=== PATIENT | female | born 1930 | race Caucasian/White ===

== ENCOUNTER 2018-12-23 12:09 | Inpatient (IN) ==
[2018-12-23] MEDS ORDERED: ZOFRAN ODT PO ONE (13:18)
[2018-12-23 14:06] LABS: HEMATOCRIT 35.2 % (37.0-47.0); HEMOGLOBIN 11.6 g/dL (12.0-16.0); IMM GRAN# 0.04 X1000 (0.0-0.04); IMM GRAN% 0.4 % (0.0-0.5); LYMPH# 0.51 X1000 (1.2-3.4); LYMPH% 4.9 % (20.5-51.1); MCH 30.4 PG (27-31); MCV 92.4 FL (81-99); MONO# 0.57 X1000 (0.11-0.59); MONO% 5.4 % (1.7-9.3); MPV 11.2 FL (7.4-10.4); NEUT# 9.35 X1000 (1.4-6.5); NEUT% 89.3 % (42.2-75.2); PLT 95 X1000 (130-400); RBC 3.81 XMIL (4.2-5.4); RDW 15.5 % (11.5-14.5); WBC 10.47 X1000 (4.8-10.8)
[2018-12-23 14:16] LABS: CALCIUM 8.8 mg/dL (8.8-10.2); CREATININE 2.7 mg/dL (0.5-0.9); POTASSIUM 3.8 mmol/L (3.5-5.1)
[2018-12-23 14:36] LABS: URINE SOURCE CLEAN CATCH
[2018-12-23] MEDS ORDERED: NS 1,000 ML IV ONE (14:42)
[2018-12-23] MEDS ORDERED: BENTYL PO ONE (14:42)
[2018-12-23 14:44] LABS: BILIRUBIN URINE NEGATIVE (NEGATIVE); BLOOD URINE SMALL (NEGATIVE); COLOR YELLOW; GLUCOSE URINE NEGATIVE (NEGATIVE); KETONE URINE NEGATIVE (NEGATIVE); LEUKOCYTES URINE TRACE (NEGATIVE); NITRITE URINE NEGATIVE (NEGATIVE); PROTEIN URINE 100 mg/dL (NEGATIVE); SP GRAVITY URINE 1.004; TURBIDITY URINE HAZY (CLEAR); UR EPITHELIAL CELLS <10 /HPF (<10); URINE BACTERIA 4+ /HPF; UROBILINOGEN URINE NORMAL (NORMAL)
[2018-12-23] MEDS ORDERED: FLAGYL PO ONE (16:20)
--- NOTE | 2018-12-23 16:45 | Diag Imaging Result Doc PS360 ---
CHEST-PORTABLE - 12/23/2018 INDICATION: SOB,EDEMA COMPARISON: 11/06/2018 FINDINGS: The lungs are normally expanded and clear. Heart size and mediastinal contours are normal. No pneumothorax or pleural effusion. IMPRESSION: Negative exam. Electronically signed by Moody Zapata 12/23/2018 4:42 PM
--- NOTE | 2018-12-23 17:46 | PROVIDER DOCUMENTATION ---
This chart was entered by Marcelina Victor Scribe, acting as scribe for Maksim Junior MD. HPI-Abdominal Pain/GI Problem - General Chief Complaint: Diarrhea Stated Complaint: WEAKNESS Time Seen by Provider: 12/23/18 13:04 Source: patient Allergies/Adverse Reactions: Patient Allergies Allergy/AdvReac Type Severity Reaction Status Date / Time No Known Allergies Allergy Verified 12/24/18 03:43 Home Medications: Home Medication List Medication Instructions Recorded Confirmed Last Taken Type Amlodipine Besylate [Norvasc] 1 tab PO DAILY 11/05/18 12/24/18 12/23/18 History Atorvastatin Calcium [Lipitor] 1 tab PO QPM 11/05/18 12/24/18 12/22/18 History Brimonidine/Timolol Ophth Soln 1 drop BOTH EYES BID 11/05/18 12/24/18 12/23/18 History [Combigan Ophth Soln] Carboxymethylcellulose Sodium 1 drop BOTH EYES QHS 11/05/18 12/24/18 12/23/18 History [Refresh Liquigel] Cyclobenzaprine HCl [Flexeril] 2 tab PO Q8HR PRN 11/05/18 12/24/18 Unknown History Folic Acid 1 tab PO DAILY 11/05/18 12/24/18 12/23/18 History Levothyroxine Sodium [Synthroid] 1 tab PO 0600 11/05/18 12/24/18 12/23/18 06:00 History Loratadine [Claritin] 1 tab PO DAILY 11/05/18 11/05/18 11/05/18 08:00 History Ondansetron HCl [Zofran] 1 tab PO Q6H PRN PRN 11/05/18 11/05/18 Unknown History Pantoprazole [Protonix] 1 tab PO QAM 11/05/18 12/24/18 12/23/18 History Polyethylene Glycol 3350 [Miralax] 17 gm PO DAILY PRN 11/05/18 12/24/18 08:00 History Acetaminophen [Tylenol] 2 tab PO Q4HR PRN 12/24/18 12/24/18 Unknown History Cholecalciferol (Vit D3) [Vitamin 1 tab PO QAM 12/24/18 12/24/18 12/23/18 History D3] Escitalopram Oxalate [Lexapro] 1 tab PO QAM 12/24/18 12/24/18 12/23/18 History Hydrochlorothiazide 1 tab PO QAM 12/24/18 12/24/18 12/23/18 History Levofloxacin [Levaquin] 1 tab PO QAM 12/24/18 12/24/18 12/23/18 History Melatonin/Pyridoxine HCl (B6) 3 tab PO QHS 12/24/18 12/24/18 12/22/18 History [Melatonin 3 mg Tablet] Mirtazapine [Remeron] 7.5 mg PO QHS 12/24/18 12/24/18 12/22/18 History Multivitamin [Multiple Vitamins] 1 tab PO QAM 12/24/18 12/24/18 12/23/18 History Olanzapine [Zyprexa] 1 tab PO QHS 12/24/18 12/24/18 12/22/18 History Ondansetron HCl [Zofran] 1 tab PO Q6HR PRN 12/24/18 12/24/18 Unknown History Vitamin B Complex 1 cap PO QAM 12/24/18 12/24/18 12/23/18 History Vortioxetine Hydrobromide 1 tab PO QAM 12/24/18 12/24/18 12/23/18 History [Trintellix] - History of Present Illness-ABD Nature of Presenting Problems: Patient is a 88 year old female who presents to the ED via EMS with abdominal pain. Patient states diarrhea, weakness and cough. Patient's daughter states patient was diagnosed with a possible URI and placed on antibiotics. Patient's daughter states patient took 2 doses and started having diarrhea. Patient denies recent fever. Abdominal Pain Onset Location: reports: generalized abdomen Pain Radiation: reports: no radiation Quality of Pain: reports: aching Severity in ED: reports: mild Onset/Duration: reports: 2 days ago Timing: reports: still present Activities at Onset: reports: light activity Modifying Factors: improves with: nothing Associated Symptoms: reports: diarrhea, weakness Bruising or Bleeding Gums?: No Similar Symptoms Previously?: Yes Recently seen or treated by another doctor?: Yes Review of Systems - Adult - REVIEW OF SYSTEMS - ADULT Constitutional: reports: no symptoms reported Eyes: reports: no symptoms reported Ears, Nose, Mouth & Throat: reports: no symptoms reported Cardiovascular: reports: no symptoms reported Respiratory: reports: cough. denies: shortness of breath, wheezing Gastrointestinal: reports: abdominal pain, diarrhea. denies: nausea, vomiting Genitourinary: reports: no symptoms reported Musculoskeletal: reports: muscle weakness. denies: back pain, neck pain Integumentary: reports: no symptoms reported Neurological: reports: no symptoms reported Psychiatric: reports: no symptoms reported Endocrine: reports: no symptoms reported Hematologic/Lymphatic: reports: no symptoms reported Allergic/Immunologic: reports: no symptoms reported All Other Systems: Reviewed and Negative Past History - Adult - PAST MEDICAL HISTORY-ADULT Review of Records: reports: Nursing Assessment Review, Medications Reviewed, Social history reviewed & non-contributory. Major Childhood Illnesses: reports: denies history Cardiovascular: reports: HTN Respiratory: reports: denies history Gastrointestinal: reports: GERD Obstetrical/Gynecological: reports: denies history Genitourinary: reports: dialysis, ESRD, kidney stones Musculoskeletal: reports: denies history Neurological: reports: denies history Psychiatric: reports: anxiety, depression Endocrine/Immune: reports: thyroid disorder Other Conditions: reports: denies history - PRIOR SURGERIES/PROCEDURES Surgical/Procedure History: reports: cholecystectomy, hysterectomy, joint replacement, other - IMMUNIZATION STATUS Childhood Immunizations: See Nurse Assessment Flu Vaccine: See Nurse Assessment - FAMILY HISTORY Family History: reviewed, not pertinent - SOCIAL HISTORY Smoking: cigarettes (former) Substance Use: denies Living Situation: care facility (assisted living) Physical Exam-General - PHYSICAL EXAM-ADULT Initial Vital Signs Reviewed: Yes - CONSTITUTIONAL General Appearance: alert, no apparent distress - HEAD, EARS, NOSE, MOUTH & THROAT HENMT: normal ENT inspection - NECK Neck: normal inspection - RESPIRATORY Respiratory: chest non-tender, lungs clear, normal breath sounds - CARDIOVASCULAR Cardiovascular: normal peripheral pulses, regular rate, rhythm - GASTROINTESTINAL (ABDOMEN) Abdominal Exam: normal bowel sounds, soft, tenderness (generalized) - MUSCULOSKELETAL Extremity: non-tender, normal inspection - SKIN Integumentary: normal color, normal turgor, warm/dry - NEUROLOGIC Neurologic: grossly normal - PSYCHIATRIC Psych/Mental Status: normal mood/affect, oriented x 3 Progress - PLAN OF CARE/RESULTS Progress/Plan/Lab Results: Vital Signs - 8 hr 12/23/18 12:40 Temperature 99.0 F Pulse Rate 87 Respiratory Rate 18 Blood Pressure 130/48 O2 Sat by Pulse Oximetry 96 Laboratory Results - last 24 hr 12/23/18 12/23/18 12/23/18 13:30 13:30 13:30 WBC 10.47 RBC 3.81 L Hgb 11.6 L Hct 35.2 L MCV 92.4 MCH 30.4 MCHC 33.0 RDW Std Deviation 15.5 H Plt Count 95 L MPV 11.2 H Immature Gran % (Auto) 0.4 Neut % (Auto) 89.3 H Lymph % (Auto) 4.9 L [place] % (Auto) 5.4 Eos % (Auto) 0.0 Baso % (Auto) 0.0 Immature Gran # (Auto) 0.04 Neut # (Auto) 9.35 H Lymph # (Auto) 0.51 L [place] # (Auto) 0.57 Eos # (Auto) 0.00 Baso # (Auto) 0.00 Sodium 137 Potassium 3.8 Chloride 101 Carbon Dioxide 21 L Anion Gap 15 BUN 33 H Creatinine 2.7 H Estimated GFR/1.73 m2 17 BUN/Creatinine Ratio 12 Glucose 103 Calculated Osmolality 281 Calcium 8.8 Plasma Lactate 1.1 Orders Category Date Time Status Saline Loc NOW Care 12/23/18 13:16 Active BMP [BASIC METABOLIC PANEL] [CHEM] Stat Lab 12/23/18 13:30 Completed C DIFF TOXIN [STOOL] Stat Lab 12/23/18 13:42 Ordered CBC WITH ELECTRONIC DIFF [HEME] Stat Lab 12/23/18 13:30 Completed INFLUENZA SCREEN A/B Stat Lab 12/23/18 14:15 Ordered LACTATE, PLASMA [CHEM] Stat Lab 12/23/18 13:30 Completed URINALYSIS W/POSS RFLX CULT [URINALYSIS] Stat Lab 12/23/18 13:42 Ordered Ondansetron Odt [Zofran Odt] Med 12/23/18 13:18 Discontinued 4 mg PO NOW ONE Result Diagrams: 12/24/18 04:44 12/24/18 04:44 - XRAY 1 XRAY Study: Chest Impression: See EMR Report ( CHEST-PORTABLE - 12/23/2018 INDICATION: SOB,EDEMA COMPARISON: 11/06/2018 FINDINGS: The lungs are normally expanded and clear. Heart size and mediastinal contours are normal. No pneumothorax or pleural effusion. IMPRESSION: Negative exam. Electronically signed by Moody Zapata 12/23/2018 4:42 PM 01/2 Interpreting Physician: Moody Zapata MD Dictated Date/Time: 12/23/18 164 cc: Maksim Junior MD; Kay De Los Santos MD) - CHANGE OF SHIFT REPORT (ED Provider) Report Given and Care Transferred to:: DR Lisa RAMOS Time of Transfer: 19:09 Items Pending: Physician Consult/Arrival Departure - Departure Date of Disposition Decision: 12/23/17 Time of Disposition Decision: 15:00 DIAGNOSIS: Diarrhea, CHF (congestive heart failure), Dependent edema, Impaired ambulation , Weakness, Shortness of breath Disposition: ADMITTED INPATIENT 09 Certified Medical Emergency: Emergent Condition: Stable - Critical Care Note This patient required my direct & personal management of CC.: No Attestation - Physician/ LARRY Attestation The physician spent face to face time with patient:: Yes Advanced Practice Provider documentation review:: Supervising physician onsite and consulted in the evaluation and care of this patient. The physician did have a face to face encounter with the patient. This chart was documented by the indicated scribe, (Marcelina Victor Scribe) and accurately reflects the services I performed and decisions made by me, Maksim Junior MD, as attested by the provider's signature.
[2018-12-23] MEDS ORDERED: VANCOCIN PO ONE (18:31)
[2018-12-23] MEDS ORDERED: NS 1,000 ML IV SCH (20:34)
[2018-12-23] MEDS ORDERED: TYLENOL PO PRN (20:34)
[2018-12-24] MEDS: FLAGYL 500 MG/NS 500 MG/100 ML IVPB IV SCH ×3 (03:01→18:40)
--- NOTE | 2018-12-24 03:19 | HISTORY AND PHYSICAL ---
CHIEF COMPLAINT: Diarrhea and shortness of breath. HISTORY OF PRESENT ILLNESS: The patient is an 88-year-old white female followed by Dr. Kay De Los Santos. The patient comes in with a 3-day history of upper respiratory symptoms to include severe sore throat, mild cough, lower extremity edema and dyspnea. The patient was seen on 12/21/2018 in [facility] and placed on hydrochlorothiazide 25 mg q.a.m., and also given antibiotic of unknown variety and she was taking it. Her sore throat improved significantly, but she still had some cough and leg swelling. Notably she has been in the hospital up in [place] at a [facility] where she has undergone about 14 ECT treatments since August according to family report as she suffers from severe depression. She had the last ECT treatments around 3 weeks ago with a full change in her antidepressant medications. She had a echocardiogram done in May of 2018 with normal EF and workup per Dr. Gopal Schwartz at that time. She denies any chest pains. Most notably patient has had severe diarrhea with 3 extremely large loose bowel movements yesterday and 1 earlier today, which was initially the reason the patient came into the hospital. MEDICATIONS PRIOR TO ADMISSION: Otherwise include Norvasc 10 mg p.o. daily, which apparently has been newly added to her medication list, Abilify 7.5 mg p.o. q.a.m., Lipitor 40 mg p.o. at bedtime, Combigan ophthalmic solution, Refresh liquid gel eye drops, vitamin D3 1000 units p.o. daily, Flexeril 5 mg p.o. daily p.r.n., folic acid 1 mg p.o. daily, Synthroid 50 mcg p.o. daily, Claritin 10 mg p.o. daily, melatonin 5 mg p.o. at bedtime, Zofran 4 mg p.o. q.6 hours p.r.n. nausea or vomiting, Protonix 40 mg p.o. daily, MiraLAX 17 g in 8 ounces of water daily, Trintellix 10 mg p.o. daily. ALLERGIES: NKDA. PAST MEDICAL HISTORY: 1. Severe depression. 2. Hypertension. 3. Glaucoma. 4. History of left breast cancer. 5. Hyperlipidemia. 6. Hypothyroidism. 7. Osteoarthritis. 8. History of syncope and sick sinus syndrome. 9. Negative cardiac catheterization in 2013. PAST SURGICAL HISTORY: 1. Bilateral mastectomy. 2. Bilateral hip ORIF. 3. Bilateral cataract surgery on numerous occasions. 4. Complete hysterectomy. 5. Cholecystectomy. FAMILY HISTORY: Notable for daughter with breast cancer. Mother with stroke and heart attacks. Father with stroke. SOCIAL HISTORY: The patient lives in the local area. She is , has 3 children. Nonsmoker. Nondrinker. REVIEW OF SYSTEMS: As above. PHYSICAL EXAMINATION: VITAL SIGNS: Temperature 98.4 degrees, pulse 78, respirations 28, blood pressure is 135/85, O2 saturation on room air 93%-95%. GENERAL: Mildly obese white female, alert and talkative. No acute distress. SKIN: No rashes. Dry mucous membranes at the lips and mouth noted. HEENT: VOLODYMYR. EOMI. Sclerae clear. OP minimal redness. No exudate. NECK: No lymphadenopathy, thyromegaly, JVD, or bruits. CARDIOVASCULAR.: RRR without appreciable murmur. LUNGS: Clear to auscultation. BACK: No CVA tenderness. ABDOMEN: Soft. Active bowel sounds. Mild diffuse tenderness. No mass or organomegaly. No rebound or guarding. BREASTS/PELVIC/RECTAL: Deferred. EXTREMITIES: With 2+ lower extremity edema. No calf tenderness or cords. NEUROLOGIC: Cranial nerves II-XII intact. She moves all extremities well. LABORATORY DATA: Shows white count of 10.4, hemoglobin 11.6, hematocrit 35.2, MCV 92, platelets 95,000, which is low for her first occasion that I can see. Sodium 137, potassium 3.8, chloride 101, CO2 of 21, BUN 33, creatinine 2.7 up from 1.9 last visit back in the summer, proBNP 4937, calcium 8.8. Urinalysis was a clean catch specimen and shows less than 10 epithelial cells, 10-20 RBCs, 10-20 WBCs, 4+ bacteria, trace leukocytes, small blood, protein 100, ketones not reported. Chest x-ray no acute disease. ASSESSMENT: 1. Diarrhea rule out Clostridium difficile colitis after recent antibiotic administration. 2. Recent upper respiratory infection. 3. Pyuria noted on a clean-catch specimen with the patient having diarrhea. Rule out urinary tract infection. Rule out contaminant. 4. Dyspnea and lower extremity edema. Rule out congestive heart failure. 5. Acute on chronic renal insufficiency. 6. Thrombocytopenia. 7. History of left breast cancer remote. 8. Glaucoma. 9. Hypothyroidism. 10. Hypertension. 11. Hyperlipidemia. 12. History of vitamin D deficiency. 13. Major depression status post electroconvulsive therapy treatments. 14. Osteoarthritis. 15. History of sick sinus syndrome worsened by beta blockers and calcium channel blockers. PLAN: At this time I am going to leave off the Norvasc as this may be contributing to her lower extremity edema. The patient clinically appears dry and her renal dysfunction I believe has a good component of prerenal azotemia. At this time we will give her low IV hydration. She has received 1 L of normal saline in the ER by the ER physician. He has also given her Bentyl, Flagyl and oral vancomycin. I am going to continue the Flagyl by IV, and leave off the vancomycin and Bentyl especially. We will check stool studies for C. difficile toxin antigen, occult blood, fecal leukocytes and stool culture. Continue most of her home medications. We will need to monitor her blood pressure off the Norvasc closely. Repeat TFTs, CBC, BMP in the morning. Check repeat UA this time with cath specimen with culture as needed. Place her on clear liquid diet. cc: MD Griffin Nur MD
[2018-12-24 05:44] LABS: EOS# 0.01 X1000 (0.0-0.7); EOS% 0.1 % (0.0-10.0); HEMATOCRIT 30.4 % (37.0-47.0); HEMOGLOBIN 10.2 g/dL (12.0-16.0); LYMPH# 0.52 X1000 (1.2-3.4); MCHC 33.6 g/dL (33-37); MCV 92.4 FL (81-99); MONO# 0.62 X1000 (0.11-0.59); MONO% 8.3 % (1.7-9.3); MPV 11.7 FL (7.4-10.4); NEUT# 6.31 X1000 (1.4-6.5); NEUT% 84.6 % (42.2-75.2); PLT 99 X1000 (130-400); RBC 3.29 XMIL (4.2-5.4); RDW 15.2 % (11.5-14.5); WBC 7.46 X1000 (4.8-10.8)
[2018-12-24 05:45] LABS: CALCIUM 7.9 mg/dL (8.8-10.2); CREATININE 2.5 mg/dL (0.5-0.9); POTASSIUM 3.6 mmol/L (3.5-5.1)
[2018-12-24 06:04] LABS: FREE T4 1.8 ng/dL (0.93-1.70); TSH 2.76 uIUmL (0.27-4.20)
[2018-12-24] MEDS: COMBIGAN OPHTH SOLN BOTH EYES SCH ×3 (09:38→20:11)
[2018-12-24] MEDS: ABILIFY PO SCH (09:39)
[2018-12-24] MEDS: LIPITOR PO SCH (09:40)
[2018-12-24] MEDS: FOLIC ACID PO SCH (09:40)
[2018-12-24] MEDS: SYNTHROID PO SCH (09:40)
[2018-12-24] MEDS: SYSTANE EYE DROPS BOTH EYES SCH ×2 (09:42→22:35)
[2018-12-24] MEDS: MELATONIN PO SCH ×3 (09:42→22:35)
[2018-12-24] MEDS: VITAMIN D PO SCH (11:00)
[2018-12-24] MEDS: TRINTELLIX PO SCH (11:01)
[2018-12-24] MEDS: ZOFRAN IV PRN (11:57)
[2018-12-24] MEDS: NS 1,000 ML IV SCH (20:12)
[2018-12-24] MEDS: PROTONIX IV SCH (21:36)
--- NOTE | 2018-12-25 00:26 | PROGRESS NOTE ---
DATE: 12/24/2018 SUBJECTIVE: An 88-year-old white female, admitted to the hospital by Dr. Lazo. History was reviewed. The patient was admitted for diarrhea, dehydration. She was treated with an upper respiratory infection in the [facility]. PAST MEDICAL HISTORY: Reviewed. PAST SURGICAL HISTORY: Reviewed. MEDICINES: Reviewed. ALLERGIES: Not known. REVIEW OF SYSTEMS: No significant diarrhea noted. Some leg cramps. EXAMINATION: Vital Signs: Temperature is 98 degrees, pulse is 79, blood pressure 133/56. HEENT: Within normal limits. Neck: Supple. Chest: Clear. Heart: Sounds are regular. Abdomen: Belly is soft. Genitourinary: In diapers. Extremities: Trace pedal edema noted. LABS: CBC: White cell count 7.4, hematocrit 30, platelets 99,000. SMA is BUN 34, creatinine 2.5. Free T4 is slightly high. Urine culture positive for infection. ASSESSMENT AND PLAN: 1. Recently treated with upper respiratory infection with antibiotics. 2. Diarrhea. Rule out pseudomembranous colitis. Currently, patient is on Flagyl. 3. Urinary tract infection. Follow up on C S. 4. Bilateral mastectomy for breast cancer, stable. 5. Hypothyroidism, on Synthroid. T4 is slightly on the high side. 6. Azotemia. Continue on IV fluids, 80 an hour. 7. Thrombocytopenia, stable. 8. History of severe major depression, status post ECT. Continue on Vortioxetine 10 mg daily. 9. Repeat the labs in the morning. So far, no stool samples were obtained. Continue on clear liquids. LEVEL OF DOCUMENTATION: 35 minutes. cc: Griffin De Los Santos MD
[2018-12-25] MEDS: FLAGYL 500 MG/NS 500 MG/100 ML IVPB IV SCH ×3 (05:27→19:30)
[2018-12-25 07:27] LABS: EOS# 0.05 X1000 (0.0-0.7); EOS% 0.6 % (0.0-10.0); HEMATOCRIT 33.9 % (37.0-47.0); HEMOGLOBIN 11.3 g/dL (12.0-16.0); IMM GRAN# 0.02 X1000 (0.0-0.04); IMM GRAN% 0.2 % (0.0-0.5); LYMPH# 0.72 X1000 (1.2-3.4); LYMPH% 8.8 % (20.5-51.1); MCH 30.3 PG (27-31); MCHC 33.3 g/dL (33-37); MCV 90.9 FL (81-99); MONO# 0.63 X1000 (0.11-0.59); MONO% 7.7 % (1.7-9.3); MPV 10.9 FL (7.4-10.4); NEUT# 6.74 X1000 (1.4-6.5); NEUT% 82.7 % (42.2-75.2); PLT 113 X1000 (130-400); RBC 3.73 XMIL (4.2-5.4); RDW 15.2 % (11.5-14.5); WBC 8.16 X1000 (4.8-10.8)
[2018-12-25 08:05] LABS: CALCIUM 8.5 mg/dL (8.8-10.2); CREATININE 2.1 mg/dL (0.5-0.9); POTASSIUM 3.3 mmol/L (3.5-5.1)
[2018-12-25] MEDS: SYNTHROID PO SCH (08:16)
[2018-12-25] MEDS: TRINTELLIX PO SCH (08:17)
[2018-12-25] MEDS: ABILIFY PO SCH (08:17)
[2018-12-25] MEDS: COMBIGAN OPHTH SOLN BOTH EYES SCH ×2 (08:17→20:37)
[2018-12-25] MEDS: VITAMIN D PO SCH (08:17)
[2018-12-25] MEDS: LOVENOX SUBQ SCH (08:17)
[2018-12-25] MEDS: FOLIC ACID PO SCH (08:17)
[2018-12-25] MEDS: POTASSIUM CHLORIDE 20 MEQ/SWI 20 MEQ/100 ML IVPB IV SCH ×5 (10:23→22:25)
[2018-12-25] MEDS: LEVAQUIN 250 MG/D5W 250 MG/50 ML IVPB IV SCH (10:37)
[2018-12-25] MEDS: NS 1,000 ML IV SCH ×2 (10:38→23:55)
[2018-12-25] MEDS: ZOFRAN IV PRN (16:35)
--- NOTE | 2018-12-25 19:20 | PROGRESS NOTE ---
DATE: 12/25/2018 SUBJECT: The patient is a little better. Still no loose bowel movements. Mild swelling of feet. REVIEW OF SYSTEMS: None reported. EXAMINATION: Temperature is 97 degrees, pulse is 76, blood pressure 149/63.HEENT: Within normal limits. Neck: Supple. Chest: Clear. Heart: Sounds are regular. Belly: Is soft, nontender. In diapers. No peripheral edema significant noted. INVESTIGATIONS: CBC: White cell count 8.1, hematocrit 33, platelets 113,000. SMA 7 sodium 139, potassium 3.3, BUN 36, creatinine 2.1. Urine cultures positive for gram-negative rods. Stool cultures, white cells negative. Occult blood negative. C difficile antigen negative. ASSESSMENT AND PLAN: 1. Urinary tract infection with gram-negative jesus sepsis, continue on IV fluids 80 mL/hour. 2. Hypokalemia replace the potassium. 3. Deep venous thrombosis prophylaxis with Lovenox. 4. Diarrhea, ruled out pseudomembranous colitis, on Flagyl. 5. Hypothyroidism on Synthroid. 6. Major depression, continue present medical therapy. Will follow up on culture report and adjust antibiotics accordingly. Follow up on daily CBC and magnesium. Advanced the diet to soft diet and will follow up. LEVEL OF DOCUMENTATION: 25 minutes. cc: Griffin De Los Santos MD
[2018-12-25] MEDS: SODIUM CHLORIDE 0.9% INJ SCH (20:36)
[2018-12-25] MEDS: SYSTANE EYE DROPS BOTH EYES SCH (20:36)
[2018-12-25] MEDS: PROTONIX IV SCH (20:36)
[2018-12-25] MEDS: LIPITOR PO SCH (20:37)
[2018-12-25] MEDS: MELATONIN PO SCH ×2 (20:37)
[2018-12-26] MEDS: NS 1,000 ML IV SCH ×3 (01:58→20:47)
[2018-12-26] MEDS: SYNTHROID PO SCH (06:08)
[2018-12-26 07:24] LABS: BASO# 0.01 X1000 (0.0-0.2); BASO% 0.1 % (0.0-0.8); EOS# 0.05 X1000 (0.0-0.7); EOS% 0.7 % (0.0-10.0); HEMATOCRIT 30.7 % (37.0-47.0); HEMOGLOBIN 10.1 g/dL (12.0-16.0); IMM GRAN# 0.03 X1000 (0.0-0.04); IMM GRAN% 0.4 % (0.0-0.5); LYMPH# 0.91 X1000 (1.2-3.4); LYMPH% 12.4 % (20.5-51.1); MCH 30.1 PG (27-31); MCHC 32.9 g/dL (33-37); MCV 91.6 FL (81-99); MONO# 0.49 X1000 (0.11-0.59); MONO% 6.7 % (1.7-9.3); MPV 11.2 FL (7.4-10.4); NEUT# 5.86 X1000 (1.4-6.5); NEUT% 79.7 % (42.2-75.2); PLT 116 X1000 (130-400); RBC 3.35 XMIL (4.2-5.4); RDW 15.5 % (11.5-14.5); WBC 7.35 X1000 (4.8-10.8)
[2018-12-26 08:09] LABS: CALCIUM 8.9 mg/dL (8.8-10.2); CREATININE 2.1 mg/dL (0.5-0.9); POTASSIUM 4.3 mmol/L (3.5-5.1)
[2018-12-26] MEDS: ABILIFY PO SCH (08:49)
[2018-12-26] MEDS: CULTURELLE PO SCH (08:49)
[2018-12-26] MEDS: VITAMIN D PO SCH (08:49)
[2018-12-26] MEDS: FOLIC ACID PO SCH (08:49)
[2018-12-26] MEDS: COMBIGAN OPHTH SOLN BOTH EYES SCH ×2 (08:49→20:22)
[2018-12-26] MEDS: LEVAQUIN 250 MG/D5W 250 MG/50 ML IVPB IV SCH (08:49)
[2018-12-26] MEDS: LIPITOR PO SCH (08:49)
[2018-12-26] MEDS: LOVENOX SUBQ SCH (08:50)
[2018-12-26] MEDS: TRINTELLIX PO SCH (08:59)
--- NOTE | 2018-12-26 10:12 | PROGRESS NOTE ---
DATE: 12/26/2018 SUBJECTIVELY: An 88-year-old, white female patient, admitted with symptoms suggestive of upper respiratory tract infection. Some diarrhea, vague abdominal pain. Admission history and physical noted. Today, the patient was complaining of mild upper abdominal pain. She denied any diarrhea but complaining of being constipated. Mild nausea. No typical chest pain or palpitations. No dysuria or hematuria. The patient does look depressed. No suicidal or homicidal ideation. Denied any heat or cold intolerance. No typical chest pain. Admission history and physical noted. PAST MEDICAL HISTORY: Significant for major depression requiring ECT treatment. Hypertension. History of breast cancer in the left breast. Glaucoma, hypothyroidism, hyperlipidemia, osteoarthritis. PAST SURGICAL HISTORY: Patient had bilateral mastectomy. Bilateral cataract surgery, bilateral hip surgery. Hysterectomy and cholecystectomy. OBJECTIVE: Vital signs: Patient is afebrile. Blood pressure 154/59, pulse 81, respirations 16, temperature 97.9. Skin: Senile turgor. No rash or petechiae. HEENT: Head atraumatic, normocephalic. [place] conjunctivae. Anicteric sclerae. Extraocular muscle movement normal. Fundus cannot be penetrated. Good oral hygiene. No tonsillopharyngeal congestion or exudate. Ears and nose benign. Neck: Supple. No JVD, thyromegaly or lymphadenopathy. Chest: Bibasilar crepitation. No rales. CVS: S1 and S2 heard. Abdomen: Soft. No distention. Mild epigastric tenderness. Extremities: No cyanosis, clubbing. No acute DVT. BENCH SCIENTIST: Alert, awake. Able to move all 4 limbs. LAB DATA: Done today, WBC count 7.35, hemoglobin 10.1, hematocrit 30.7. Platelet count 116. Electrolytes fairly benign. BUN 37, creatinine 2.1. Potassium 4.3. ASSESSMENT: The patient's medical problems includes: 1. Hypothyroidism on Synthroid. 2. Urinary tract infection with gram negative rods due to E. coli. The patient's blood culture was also positive for E. coli suggestive of sepsis. Stool workup so far negative for Clostridium difficile colitis. Her other problems include: 1. Hypothyroidism on Synthroid. 2. Chronic kidney disease. 3. We will continue gastrointestinal and deep vein thrombosis prophylaxis. 4. Major depression. PLAN: Overall plan discussed with the patient. cc: MD Griffin Pina MD
[2018-12-26 10:13] LABS: ALB/GLOB RATIO 1.2; ALBUMIN 2.5 g/dL (3.5-5.0); DIRECT BILIRUBIN 0.1 mg/dL (0.00-0.20); TOTAL BILIRUBIN 0.38 mg/dL (0.20-1.00); TOTAL PROTEIN 4.6 g/dL (6.3-8.3)
[2018-12-26] MEDS ORDERED: NS IV SCH (11:00)
[2018-12-26] MEDS ORDERED: PRIMAXIN IV SCH (11:00)
[2018-12-26] MEDS: MELATONIN PO SCH ×2 (20:22)
[2018-12-26] MEDS: SODIUM CHLORIDE 0.9% INJ SCH (20:23)
[2018-12-26] MEDS: PROTONIX IV SCH (20:23)
[2018-12-26] MEDS: SYSTANE EYE DROPS BOTH EYES SCH (20:23)
[2018-12-26] MEDS: PRIMAXIN 500 MG in NS 100 ML IV SCH (23:39)
[2018-12-27] MEDS: SYNTHROID PO SCH (06:20)
[2018-12-27] MEDS: NS 1,000 ML IV SCH ×3 (06:20→21:27)
[2018-12-27 07:49] LABS: BASO# 0.02 X1000 (0.0-0.2); BASO% 0.3 % (0.0-0.8); EOS# 0.09 X1000 (0.0-0.7); EOS% 1.3 % (0.0-10.0); HEMATOCRIT 32.2 % (37.0-47.0); HEMOGLOBIN 10.7 g/dL (12.0-16.0); IMM GRAN# 0.06 X1000 (0.0-0.04); IMM GRAN% 0.9 % (0.0-0.5); LYMPH% 15.7 % (20.5-51.1); MCH 30.7 PG (27-31); MCHC 33.2 g/dL (33-37); MCV 92.5 FL (81-99); MONO# 0.62 X1000 (0.11-0.59); MONO% 8.8 % (1.7-9.3); MPV 11.4 FL (7.4-10.4); NEUT# 5.13 X1000 (1.4-6.5); PLT 123 X1000 (130-400); RBC 3.48 XMIL (4.2-5.4); RDW 15.9 % (11.5-14.5); WBC 7.02 X1000 (4.8-10.8)
[2018-12-27 08:05] LABS: CALCIUM 8.4 mg/dL (8.8-10.2); CREATININE 1.9 mg/dL (0.5-0.9); MAGNESIUM 1.4 mg/dL (1.5-2.7); POTASSIUM 4.3 mmol/L (3.5-5.1)
[2018-12-27] MEDS ORDERED: PRIMAXIN 1,000 MG in NS 250 ML IV SCH (09:00)
[2018-12-27] MEDS ORDERED: MAGNESIUM SULFATE 2 GM/S.W.I. 2 GM/50 ML IVPB IV ONE (10:08)
--- NOTE | 2018-12-27 10:35 | PROGRESS NOTE ---
DATE: 12/27/2018 SUBJECTIVE: Ms. Sandoval is doing fair. Her oral intake is fair. Complaining of some wheezing. No high-grade fever or chills. Denied any nausea or vomiting. No typical chest pain. Vital signs noted. Patient does have sepsis due to extended spectrum beta lactamase positive Escherichia coli, which was present in the blood and urine. OBJECTIVE: Vital Signs: Blood pressure 150/55, pulse 81, respirations 15, temperature 98.1 degrees. Neck: Supple. No JVD. Lungs: Bibasilar crepitations. Occasional wheezing. CVS: S1 and S2 heard. Abdomen: Soft, globular. Bowel sounds present. PHOTO EDITOR: Alert, awake. Able to move all 4 limbs. LAB DATA: Her lab data done today revealed WBC count 7.02, hemoglobin 10.7, hematocrit 32.2, platelet count 123. BUN was 26, creatinine 1.9, potassium 4.3. CONSIDERATION: Sepsis due to Escherichia coli urinary tract infection, major depression, chronic kidney disease. I am going to get chest x-ray today. Continue rest of the treatment. Treat her with zinc symptomatically. The patient is on Primaxin. cc: MD Griffin Pina MD
--- NOTE | 2018-12-27 10:58 | Diag Imaging Result Doc PS360 ---
EXAM: CHEST-PORTABLE - 12/27/2018 HISTORY: sob TECHNIQUE: Portable chest COMPARISON: 12/23/2018 FINDINGS: Heart size is normal. There is mild tortuosity of the thoracic aorta. The lungs appear clear. There is no pleural effusion or pneumothorax identified. IMPRESSION: No evidence of acute disease. Electronically signed by Tanner Mendez 12/27/2018 10:55 AM
[2018-12-27] MEDS: COMBIGAN OPHTH SOLN BOTH EYES SCH ×2 (12:21→21:05)
[2018-12-27] MEDS: TRINTELLIX PO SCH (12:22)
[2018-12-27] MEDS: CULTURELLE PO SCH (12:22)
[2018-12-27] MEDS: VITAMIN D PO SCH (12:24)
[2018-12-27] MEDS: ABILIFY PO SCH (12:24)
[2018-12-27] MEDS: FOLIC ACID PO SCH (12:24)
[2018-12-27] MEDS: LIPITOR PO SCH (12:24)
[2018-12-27] MEDS: LOVENOX SUBQ SCH (12:26)
[2018-12-27] MEDS: ZOFRAN IV PRN (12:28)
[2018-12-27] MEDS: PRIMAXIN 500 MG in NS 100 ML IV SCH (15:24)
[2018-12-27] MEDS: MELATONIN PO SCH ×2 (21:06)
[2018-12-27] MEDS: PROTONIX IV SCH (21:25)
[2018-12-27] MEDS: SYSTANE EYE DROPS BOTH EYES SCH (21:25)
[2018-12-27] MEDS: SODIUM CHLORIDE 0.9% INJ SCH (21:25)
[2018-12-28] MEDS: PRIMAXIN 500 MG in NS 100 ML IV SCH ×2 (03:46→15:26)
[2018-12-28] MEDS: SYNTHROID PO SCH (06:17)
[2018-12-28 09:19] LABS: BASO# 0.02 X1000 (0.0-0.2); BASO% 0.3 % (0.0-0.8); EOS# 0.18 X1000 (0.0-0.7); EOS% 2.6 % (0.0-10.0); HEMATOCRIT 32.9 % (37.0-47.0); HEMOGLOBIN 10.7 g/dL (12.0-16.0); IMM GRAN# 0.09 X1000 (0.0-0.04); IMM GRAN% 1.3 % (0.0-0.5); LYMPH# 1.34 X1000 (1.2-3.4); LYMPH% 19.2 % (20.5-51.1); MCH 30.1 PG (27-31); MCHC 32.5 g/dL (33-37); MCV 92.4 FL (81-99); MONO# 0.47 X1000 (0.11-0.59); MONO% 6.7 % (1.7-9.3); MPV 10.7 FL (7.4-10.4); NEUT# 4.89 X1000 (1.4-6.5); NEUT% 69.9 % (42.2-75.2); PLT 142 X1000 (130-400); RBC 3.56 XMIL (4.2-5.4); RDW 15.7 % (11.5-14.5); WBC 6.99 X1000 (4.8-10.8)
[2018-12-28 09:22] LABS: BANDS 2 % (0-1); LYMPHS 18 % (21-51); MONO 2 % (1-9); SEGS 76 % (42-75)
[2018-12-28 09:39] LABS: CALCIUM 9.2 mg/dL (8.8-10.2); CREATININE 1.6 mg/dL (0.5-0.9); POTASSIUM 4.4 mmol/L (3.5-5.1)
--- NOTE | 2018-12-28 09:51 | Diag Imaging Result Doc PS360 ---
EXAM: US RENAL 2 (RETROPER) COMPLETE HISTORY: kendell/arf TECHNIQUE: Renal ultrasound COMPARISON: None. FINDINGS: The right kidney measures 8.9 x 4.0 x 4.8 cm. There are scattered renal cysts. The largest is a septated cyst in the upper pole measuring 2.7 cm. No solid renal mass. Normal echotexture and cortical thickness. No stone or hydronephrosis. The urinary bladder is distended and is normal. The left ovary measures 10.4 x 3.9 x 5.2 cm. Normal renal echotexture and cortical thickness. There are scattered renal cysts. The largest measures 1.3 cm in the mid kidney. No stone or hydronephrosis. IMPRESSION: Bilateral renal cysts Electronically signed by Juan Cao 12/28/2018 9:48 AM
[2018-12-28] MEDS: ABILIFY PO SCH (10:44)
[2018-12-28] MEDS: VITAMIN D PO SCH (10:46)
[2018-12-28] MEDS: LIPITOR PO SCH (10:46)
[2018-12-28] MEDS: FOLIC ACID PO SCH (10:47)
[2018-12-28] MEDS: CULTURELLE PO SCH (10:47)
[2018-12-28] MEDS: LOVENOX SUBQ SCH (10:47)
[2018-12-28] MEDS: TRINTELLIX PO SCH (10:48)
[2018-12-28] MEDS: NS 1,000 ML IV SCH (10:49)
[2018-12-28] MEDS: COMBIGAN OPHTH SOLN BOTH EYES SCH ×2 (10:50→22:37)
[2018-12-28] MEDS: SYSTANE EYE DROPS BOTH EYES SCH (22:37)
[2018-12-28] MEDS: MELATONIN PO SCH ×2 (22:37)
[2018-12-28] MEDS: PROTONIX IV SCH (22:37)
--- NOTE | 2018-12-29 01:21 | PROGRESS NOTE ---
DATE: 12/28/2018 SUBJECTIVE: The patient is a little better. She is not walking. Events noted over the weekend. ESBL positive E. Coli. No diarrhea. The patient is a little better. [place] OBJECTIVE: Vital signs: Temperature is 98 degrees, pulse is 72, blood pressure 124/60. HEENT: Within normal limits. Chest: Clear. Heart: Sounds are regular. Abdomen: Belly is soft, nontender. Extremities: No peripheral edema. Neurologic: No obvious neurological deficits. LABORATORY INVESTIGATIONS: CBC: White cell count 6.9, hematocrit 32, platelets 142,000. SMA 7: Sodium 140, potassium 4.4, BUN 23, creatinine 1.6, magnesium 1.4, amylase and lipase was normal. ASSESSMENT AND PLAN: 1. Diarrhea nonspecific. 2. Dehydration is improving. 3. Hypomagnesemia on replacement. 4. Depression status post electoconvulsive therapy and continue selective serotonin reuptake inhibitors. 5. Deep venous thrombosis prophylaxis with Lovenox and gastrointestinal prophylaxis with intravenous Protonix. 6. Next extended spectrum beta-lactamase sepsis syndrome on intravenous Diprivan. 7. Out of the bed with physical therapy. Continue present treatment. LEVEL OF DOCUMENTATION: 25 minutes. cc: Griffin De Los Santos MD MTDD
[2018-12-29] MEDS: PRIMAXIN 500 MG in NS 100 ML IV SCH ×2 (03:50→14:50)
[2018-12-29] MEDS: NS 1,000 ML IV SCH ×3 (04:46→20:30)
[2018-12-29] MEDS: SYNTHROID PO SCH (06:30)
[2018-12-29 07:23] LABS: BASO# 0.01 X1000 (0.0-0.2); BASO% 0.1 % (0.0-0.8); EOS# 0.16 X1000 (0.0-0.7); EOS% 2.1 % (0.0-10.0); HEMATOCRIT 32.5 % (37.0-47.0); HEMOGLOBIN 10.7 g/dL (12.0-16.0); IMM GRAN# 0.07 X1000 (0.0-0.04); IMM GRAN% 0.9 % (0.0-0.5); LYMPH# 1.63 X1000 (1.2-3.4); LYMPH% 21.8 % (20.5-51.1); MCH 30.5 PG (27-31); MCHC 32.9 g/dL (33-37); MCV 92.6 FL (81-99); MONO# 0.53 X1000 (0.11-0.59); MONO% 7.1 % (1.7-9.3); MPV 10.5 FL (7.4-10.4); NEUT# 5.08 X1000 (1.4-6.5); PLT 165 X1000 (130-400); RBC 3.51 XMIL (4.2-5.4); RDW 15.6 % (11.5-14.5); WBC 7.48 X1000 (4.8-10.8)
[2018-12-29] MEDS: TRINTELLIX PO SCH (08:07)
[2018-12-29] MEDS: LIPITOR PO SCH (08:07)
[2018-12-29] MEDS: VITAMIN D PO SCH (08:08)
[2018-12-29] MEDS: CULTURELLE PO SCH (08:08)
[2018-12-29] MEDS: ABILIFY PO SCH (08:08)
[2018-12-29] MEDS: LOVENOX SUBQ SCH (08:09)
[2018-12-29] MEDS: COMBIGAN OPHTH SOLN BOTH EYES SCH ×2 (08:09→22:09)
[2018-12-29] MEDS: FOLIC ACID PO SCH (08:09)
[2018-12-29 08:33] LABS: CALCIUM 9.3 mg/dL (8.8-10.2); CREATININE 1.6 mg/dL (0.5-0.9); POTASSIUM 4.4 mmol/L (3.5-5.1)
--- NOTE | 2018-12-29 19:16 | PROGRESS NOTE ---
DATE: 12/29/2018 SUBJECTIVE: The patient is slowly getting better. Still bedridden, not able to walk. Physical Therapy consult has been requested. REVIEW OF SYSTEMS: None reported. EXAMINATION: Vital Signs: Temp is 98, pulse is 86, blood pressure is 150/61, 93% on room air. HEENT: Within normal limits. Chest: Clear. Heart: Sounds are regular. Abdomen: Belly is soft, nontender. In diapers. No edema. INVESTIGATIONS: CBC: White cell count 7.4, hematocrit 32, platelet 165,000. SMA-7: Sodium 140, potassium 4.4, BUN 19, creatinine 1.6. Stool cultures were negative. ASSESSMENT AND PLAN: 1. Prerenal azotemia. 2. Acute kidney injury, improving. Continue IV fluids. 3. ESBL E coli. IV imipenem twice a day. 4. Out of the bed with physical therapy. 5. Check the CBC, BMP in the morning. 6. Disposition: Assisted living at [facility], [place]. Continue present medical therapy. LEVEL OF DOCUMENTATION: 35 minutes. cc: Griffin De Los Santos MD
[2018-12-29] MEDS: MELATONIN PO SCH ×2 (22:08→22:09)
[2018-12-29] MEDS: PROTONIX IV SCH (22:09)
[2018-12-29] MEDS: SYSTANE EYE DROPS BOTH EYES SCH (22:09)
[2018-12-29] MEDS: SODIUM CHLORIDE 0.9% INJ SCH (22:09)
[2018-12-30] MEDS: PRIMAXIN 500 MG in NS 100 ML IV SCH ×2 (04:00→14:48)
[2018-12-30] MEDS: NS 1,000 ML IV SCH ×2 (05:44→10:02)
[2018-12-30] MEDS: SYNTHROID PO SCH ×2 (05:49→06:49)
[2018-12-30 06:32] LABS: BASO# 0.02 X1000 (0.0-0.2); BASO% 0.3 % (0.0-0.8); EOS# 0.15 X1000 (0.0-0.7); EOS% 1.9 % (0.0-10.0); HEMATOCRIT 31.1 % (37.0-47.0); HEMOGLOBIN 10.2 g/dL (12.0-16.0); IMM GRAN# 0.12 X1000 (0.0-0.04); IMM GRAN% 1.5 % (0.0-0.5); LYMPH# 1.73 X1000 (1.2-3.4); LYMPH% 21.7 % (20.5-51.1); MCH 32.3 PG (27-31); MCHC 32.8 g/dL (33-37); MCV 98.4 FL (81-99); MONO# 0.49 X1000 (0.11-0.59); MONO% 6.1 % (1.7-9.3); MPV 10.7 FL (7.4-10.4); NEUT# 5.46 X1000 (1.4-6.5); NEUT% 68.5 % (42.2-75.2); PLT 171 X1000 (130-400); RBC 3.16 XMIL (4.2-5.4); RDW 15.9 % (11.5-14.5); WBC 7.97 X1000 (4.8-10.8)
[2018-12-30 06:56] LABS: CALCIUM 9.1 mg/dL (8.8-10.2); CREATININE 1.5 mg/dL (0.5-0.9); POTASSIUM 4.6 mmol/L (3.5-5.1)
[2018-12-30] MEDS: LOVENOX SUBQ SCH (09:10)
[2018-12-30] MEDS: CULTURELLE PO SCH (09:10)
[2018-12-30] MEDS: VITAMIN D PO SCH (09:10)
[2018-12-30] MEDS: FOLIC ACID PO SCH (09:11)
[2018-12-30] MEDS: TRINTELLIX PO SCH (09:11)
[2018-12-30] MEDS: ABILIFY PO SCH (09:11)
[2018-12-30] MEDS: LIPITOR PO SCH (09:11)
[2018-12-30] MEDS: COMBIGAN OPHTH SOLN BOTH EYES SCH ×2 (10:04→20:44)
[2018-12-30] MEDS: ZOFRAN IV PRN (12:58)
--- NOTE | 2018-12-30 19:38 | PROGRESS NOTE ---
DATE: 12/30/2018 SUBJECTIVE: The patient is slowly getting better. She is not offering any complaints. OBJECTIVE: Vital signs: Temperature is 98 degrees, pulse is 85, blood pressure 120/65. I's and O's are even. HEENT: Within normal limits. Neck: Supple. Chest: Clear. Heart: Sounds are regular. Abdomen: Belly is soft, nontender. INVESTIGATIONS: CBC: White cell count 7.9, hematocrit 31, platelets 171,000. Sodium 140, potassium 4.6, BUN 17, creatinine 1.5. ASSESSMENT AND PLAN: 1. Extended-spectrum beta-lactamases Escherichia coli. Continue on IV imipenem improving ultrasound of the renals are normal. 2. Azotemia is getting better. 3. Continue out of the bed with physical therapy. Continue present medical therapy. If she is stable, will discharge by tomorrow. LEVEL OF DOCUMENTATION: 15 minutes. cc: Griffin De Los Santos MD MTDD
[2018-12-30] MEDS: SYSTANE EYE DROPS BOTH EYES SCH (20:44)
[2018-12-30] MEDS: MELATONIN PO SCH ×2 (20:44)
[2018-12-30] MEDS: SODIUM CHLORIDE 0.9% INJ SCH (20:44)
[2018-12-30] MEDS: PROTONIX IV SCH (20:44)
[2018-12-31] MEDS: NS 1,000 ML IV SCH ×2 (00:30→10:03)
[2018-12-31] MEDS: PRIMAXIN 500 MG in NS 100 ML IV SCH ×2 (03:30→15:41)
[2018-12-31 06:41] LABS: BASO# 0.02 X1000 (0.0-0.2); BASO% 0.2 % (0.0-0.8); EOS# 0.14 X1000 (0.0-0.7); EOS% 1.5 % (0.0-10.0); HEMATOCRIT 33.8 % (37.0-47.0); HEMOGLOBIN 10.8 g/dL (12.0-16.0); IMM GRAN% 1.1 % (0.0-0.5); LYMPH# 1.93 X1000 (1.2-3.4); MCH 30.4 PG (27-31); MCV 95.2 FL (81-99); MONO# 0.61 X1000 (0.11-0.59); MONO% 6.6 % (1.7-9.3); MPV 10.1 FL (7.4-10.4); NEUT# 6.39 X1000 (1.4-6.5); NEUT% 69.6 % (42.2-75.2); PLT 191 X1000 (130-400); RBC 3.55 XMIL (4.2-5.4); RDW 15.6 % (11.5-14.5); WBC 9.19 X1000 (4.8-10.8)
[2018-12-31] MEDS: SYNTHROID PO SCH (06:41)
[2018-12-31 07:14] LABS: CALCIUM 8.8 mg/dL (8.8-10.2); CREATININE 1.5 mg/dL (0.5-0.9); POTASSIUM 4.5 mmol/L (3.5-5.1)
[2018-12-31] MEDS: COMBIGAN OPHTH SOLN BOTH EYES SCH ×2 (09:59→22:13)
[2018-12-31] MEDS: VITAMIN D PO SCH (10:00)
[2018-12-31] MEDS: CULTURELLE PO SCH (10:00)
[2018-12-31] MEDS: FOLIC ACID PO SCH (10:00)
[2018-12-31] MEDS: LOVENOX SUBQ SCH (10:00)
[2018-12-31] MEDS: LIPITOR PO SCH (10:00)
[2018-12-31] MEDS: TRINTELLIX PO SCH (10:01)
[2018-12-31] MEDS: ABILIFY PO SCH (10:11)
[2018-12-31] MEDS: DUONEB (A & A) INH PRN (15:53)
--- NOTE | 2018-12-31 20:05 | PROGRESS NOTE ---
DATE: 12/31/2018 SUBJECTIVE: Patient is anxious to go to [facility]. I did all the paperwork. I was called again in the afternoon. She is not a candidate for assisted living. PHYSICAL EXAMINATION: Vital Signs: Vitals are stable. HEENT: Within normal limits. Neck: Supple. Chest: Clear. Bilateral mastectomy scars. Abdomen: Belly is soft, nontender. In diapers. Neurologic: No neurological deficits. INVESTIGATIONS: CBC: White cell count 9.1, hematocrit 33, platelets 191,000. SMA-7: Creatinine 1.5. ASSESSMENT AND PLAN: 1. ESBL Escherichia coli. Stable. Changed to Macrobid. 2. Azotemia, better. Discontinue hydrochlorothiazide. 3. The patient is not a candidate for [facility] and Social Service consult for the long-term [facility] placement. 4. History of major depression, on vortioxetine 10 mg daily, and will follow up. LEVEL OF DOCUMENTATION: 25 minutes. cc: Griffin De Los Santos MD
[2018-12-31] MEDS: PROTONIX IV SCH (22:13)
[2018-12-31] MEDS: MELATONIN PO SCH ×2 (22:13)
[2018-12-31] MEDS: SYSTANE EYE DROPS BOTH EYES SCH (22:13)
[2019-01-01] MEDS: SYNTHROID PO SCH (06:57)
--- NOTE | 2019-01-01 10:19 | DISCHARGE SUMMARY ---
ADMISSION DATE: 12/23/2018 DISCHARGE DATE: 01/05/2019 DISCHARGING DIAGNOSIS: Altered mental status due to metabolic encephalopathy with underlying severe depression. SECONDARY DIAGNOSIS: 1. Extended Spectrum Beta-Lactamase Escherichia coli. 2. Azotemia with diuretics. 3. Hypertension. 4. Glaucoma. 5. History of left breast cancer. 6. Bilateral mastectomy. 7. Hyperlipidemia. 8. Hypothyroidism. 9. Osteoarthritis. 10. History of sick sinus syndrome, stable. 11.Diarrhea BRIEF HISTORY: Please see the H and P that was done by Dr. Lazo. In brief, she is an 88-year-old white female with above problems who came in with diarrhea, shortness of breath, UTI symptoms, mental confusion, and decreasing of activities of daily living. The patient has been suffering from severe depression requiring ECT and SSRI. HOSPITAL COURSE: 1. For diarrhea, stool samples were negative. Patient was ruled out for pseudomembranous colitis. 2. Urine culture showed ESBL E-coli and started on IV imipenem. 3. Azotemia due to diuretics and not eating well. Patient was given gentle hydration. Follow up renal function tests came back to the baseline. Creatinine 1.5. 4. The patient has been living in [facility], and she is not a candidate for assisted living because of the underlying problems. At the request of the family, she is being transferred to rehab. 5. Rest of the hospital course was uneventful. LABORATORY DATA: Labs, as follows, at the time of discharge. CBC with white cell count 9.1, hematocrit 33, platelets 191,000. SMA 7: Sodium 140, potassium 4.5, chloride 110. BUN 21. Creatinine 1.5. Stool cultures were negative. Blood culture and urine culture showed E-coli ESBL positive. Renal ultrasound: Bilateral renal cysts. No stone. No hydronephrosis noted. Chest x-ray: No evidence of acute disease. DISCHARGE INSTRUCTIONS: 1. Synthroid 50 mcg in the morning on empty stomach. 2. Norvasc 10 mg daily. 3. Lipitor 40 daily. 4. Flexeril 5 mg b.i.d. 5. Folic acid 1 mg daily. 6. Claritin 10 mg daily. 7. Protonix 40 daily. 8. MiraLAX 17 g daily, as needed. 9. Combigan drops 1 drop both eyes b.i.d. 10. Tylenol as needed for pain. 11. Vitamin D at 3000 units daily. 12. Lexapro 10 daily. 13. Discontinue hydrochlorothiazide. 14. Melatonin 3 mg 3 tablets at bedtime. 15. Remeron 7.5 daily. 16. Multivitamin 1 tablet daily. 17. Vitamin B complex 1 tablet daily. 18. Trintellix 20 mg daily. 19. Zyprexa 2.5 daily. 20. Macrobid 100 daily for 7 days. 21.Bentyl 10 mg TID as needed. FOLLOWUP: Follow up in my office in 2 weeks. cc: Griffin De Los Santos MD [facility]
[2019-01-01] MEDS: VITAMIN D PO SCH (10:40)
[2019-01-01] MEDS: LIPITOR PO SCH (10:40)
[2019-01-01] MEDS: MACROBID PO SCH (10:41)
[2019-01-01] MEDS: ABILIFY PO SCH (10:41)
[2019-01-01] MEDS: TRINTELLIX PO SCH (10:41)
[2019-01-01] MEDS: FOLIC ACID PO SCH (10:41)
[2019-01-01] MEDS: LOVENOX SUBQ SCH (10:42)
[2019-01-01] MEDS: CULTURELLE PO SCH (10:42)
[2019-01-01] MEDS: COMBIGAN OPHTH SOLN BOTH EYES SCH ×2 (10:46→20:38)
[2019-01-01] MEDS: PROTONIX PO SCH (18:13)
[2019-01-01] MEDS: MELATONIN PO SCH ×2 (20:38)
[2019-01-01] MEDS: SYSTANE EYE DROPS BOTH EYES SCH (20:38)
--- NOTE | 2019-01-01 23:54 | PROGRESS NOTE ---
DATE: 01/01/2019 SUBJECT: An 88-year-old white female, not a candidate for assisted living. Currently stable. Slowly declining. EXAM: Vitals are stable. Physical exam no change. Belly is soft, nontender. ASSESSMENT AND PLAN: 1. Escherichia coli with extended spectrum beta-lactamase on Macrobid 100 once daily. 2. Azotemia, improving. 3. Depression, stable. Patient is waiting for long-term placement. Changing to assisted living to long-term placement. litigation services manager was consulted. Paperwork was completed. Waiting for placement after the weekend. LEVEL OF DOCUMENTATION: 15 minutes. cc: Griffin De Los Santos MD
[2019-01-02] MEDS: SYNTHROID PO SCH (06:27)
[2019-01-02] MEDS ORDERED: CALMOSEPTINE OINTMENT TOP PRN (09:50)
[2019-01-02] MEDS: CULTURELLE PO SCH (10:33)
[2019-01-02] MEDS: TRINTELLIX PO SCH (10:33)
[2019-01-02] MEDS: LIPITOR PO SCH (10:33)
[2019-01-02] MEDS: LOVENOX SUBQ SCH (10:33)
[2019-01-02] MEDS: VITAMIN D PO SCH (10:34)
[2019-01-02] MEDS: ABILIFY PO SCH (10:34)
[2019-01-02] MEDS: MACROBID PO SCH (10:34)
[2019-01-02] MEDS: FOLIC ACID PO SCH (10:34)
[2019-01-02] MEDS: COMBIGAN OPHTH SOLN BOTH EYES SCH ×2 (10:40→21:09)
[2019-01-02] MEDS: LOMOTIL PO PRN ×2 (12:37→17:57)
--- NOTE | 2019-01-02 12:37 | PROGRESS NOTE ---
DATE: 01/02/2019 SUBJECTIVE: Ms. Faulkner has persistent diarrhea. She is supposed to be going to the rehabilitation. She had recurrent UTI and azotemia. Her Clostridium difficile was negative. We are going to put her on some Lomotil to see if that diarrhea had happened symptomatically. -6 cc: MD Griffin Alaniz MD
[2019-01-02] MEDS: PROTONIX PO SCH (18:00)
[2019-01-02] MEDS: SYSTANE EYE DROPS BOTH EYES SCH (21:09)
[2019-01-02] MEDS: MELATONIN PO SCH ×2 (21:09)
[2019-01-03 05:57] LABS: CALCIUM 9.6 mg/dL (8.8-10.2); CREATININE 1.7 mg/dL (0.5-0.9); POTASSIUM 4.4 mmol/L (3.5-5.1)
[2019-01-03] MEDS: SYNTHROID PO SCH (06:09)
[2019-01-03] MEDS: LOVENOX SUBQ SCH (08:21)
[2019-01-03] MEDS: FOLIC ACID PO SCH (08:21)
[2019-01-03] MEDS: CULTURELLE PO SCH (08:21)
[2019-01-03] MEDS: VITAMIN D PO SCH (08:21)
[2019-01-03] MEDS: MACROBID PO SCH (08:21)
[2019-01-03] MEDS: LIPITOR PO SCH (08:21)
[2019-01-03] MEDS: TRINTELLIX PO SCH (08:22)
[2019-01-03] MEDS: ABILIFY PO SCH (08:22)
[2019-01-03] MEDS: COMBIGAN OPHTH SOLN BOTH EYES SCH ×2 (08:23→20:38)
[2019-01-03] MEDS: ZOFRAN IV PRN (12:37)
[2019-01-03 13:21] LABS: ALLEN TEST NO; BE -1.1 mmoll (-3.0-3.0); BLOOD TYPE ARTERIAL; HCO3-(ACT) 24.1 mmoll (20.0-26.0); METHB 1.1 % (0.0-1.5); MODALITY CANNULA; O2(CT) 14.4 mL/dL (15.0-23.0); O2HB 96.7 % (95.0-99.0); PCO2(98.6) 38 mmHg (35-45); PO2(98.6) 99 mmHg (60-100); SAMPLE BLOOD; SAO2 99.5 % (95.0-100.0); THB 10.5 g/dL (11.5-17.4)
--- NOTE | 2019-01-03 17:04 | PROGRESS NOTE ---
DATE: 01/03/2019 Ms. Faulkner had some chest pain last night. Her D-dimer was elevated however BUN and creatinine are still high hence I cannot do a CT angiogram to rule out pulmonary embolism. Her troponin studies are negative so far. We have not got EKG done yet on the I order a stat EKG on her. She vomited this morning and has not been feeling good. We are going to watch her closely today keep her on telemetry . -7 cc: MD Griffin Alaniz MD
[2019-01-03] MEDS: PROTONIX PO SCH (18:09)
[2019-01-03] MEDS: SYSTANE EYE DROPS BOTH EYES SCH (20:39)
[2019-01-03] MEDS: MELATONIN PO SCH ×2 (20:39)
[2019-01-04] MEDS: LOMOTIL PO PRN ×2 (02:13→15:56)
[2019-01-04] MEDS: ZOFRAN IV PRN (02:13)
--- NOTE | 2019-01-04 04:02 | PROGRESS NOTE ---
ADDENDUM DATE: 01/03/2019 SUBJECTIVE: Ms. Faulkner is doing better now. OBJECTIVE: Lungs: Her lungs sound clear. Heart: Heart sounds are normal. She is in regular sinus rhythm. DIAGNOSTIC STUDIES: Initial troponin is negative. Arterial blood gases are normal with PO2 of around 99. EKG shows regular sinus rhythm. No acute changes noted. ASSESSMENT AND PLAN: 1. We are going to repeat the EKG in the morning and we will repeat the cardiac enzymes. 2. Her D-dimer is elevated; however, because of elevated BUN and creatinine, we cannot get a CT angiogram of the chest, and I personally do not feel like she will cooperate with V/Q lung scan. 3. In the meantime, we will continue Lovenox 30 mg subcutaneous daily. 4. We will watch for the progress in the morning. cc: MD Griffin Alaniz MD
[2019-01-04] MEDS: SYNTHROID PO SCH (06:40)
--- NOTE | 2019-01-04 07:29 | EKG Report ---
Test Performed on : 01/04/2019 07:14:37 AM Test Reason : CP Blood Pressure : / mmHG Vent. Rate : 083 BPM Atrial Rate : 083 BPM P-R Int : 160 ms QRS Dur : 084 ms QT Int : 378 ms P-R-T Axes : 066 021 063 degrees QTc Int : 444 ms Sinus rhythm. with premature atrial complexes. Possible Anterior infarct , age undetermined Abnormal ECG When compared with ECG of 03-JAN-2019 12:46, (Unconfirmed) premature atrial complexes. are now present Confirmed by Micki MEJIA, Michael Juan ([id number]) on 01/04/2019 3:56:44 PM
[2019-01-04 07:52] LABS: CREATININE 1.8 mg/dL (0.5-0.9)
--- NOTE | 2019-01-04 08:00 | EKG Report ---
Test Performed on : 01/03/2019 04:46:14 AM Test Reason : chest pain Blood Pressure : / mmHG Vent. Rate : 087 BPM Atrial Rate : 087 BPM P-R Int : 146 ms QRS Dur : 074 ms QT Int : 350 ms P-R-T Axes : 064 017 066 degrees QTc Int : 421 ms Normal sinus rhythm. Anterior infarct , age undetermined Abnormal ECG When compared with ECG of 05-NOV-2018 19:25, premature atrial complexes. are no longer present Anterior infarct is now present Confirmed by Micki MEJIA, Michael Juan ([id number]) on 01/04/2019 3:55:05 PM
--- NOTE | 2019-01-04 08:04 | EKG Report ---
Test Performed on : 01/03/2019 12:46:27 PM Test Reason : chest pain Blood Pressure : / mmHG Vent. Rate : 096 BPM Atrial Rate : 096 BPM P-R Int : 152 ms QRS Dur : 074 ms QT Int : 342 ms P-R-T Axes : 066 019 073 degrees QTc Int : 432 ms Normal sinus rhythm. Normal ECG When compared with ECG of 03-JAN-2019 04:46, (Unconfirmed) No significant change was found Confirmed by Michael Sweet MD ([id number]) on 01/04/2019 3:55:54 PM
[2019-01-04] MEDS: ABILIFY PO SCH (09:18)
[2019-01-04] MEDS: VITAMIN D PO SCH (09:19)
[2019-01-04] MEDS: CULTURELLE PO SCH (09:19)
[2019-01-04] MEDS: TRINTELLIX PO SCH (09:19)
[2019-01-04] MEDS: LIPITOR PO SCH (09:19)
[2019-01-04] MEDS: FOLIC ACID PO SCH (09:19)
[2019-01-04] MEDS: MACROBID PO SCH (09:19)
[2019-01-04] MEDS: LOVENOX SUBQ SCH (09:19)
[2019-01-04] MEDS: COMBIGAN OPHTH SOLN BOTH EYES SCH ×2 (09:21→21:52)
--- NOTE | 2019-01-04 21:28 | PROGRESS NOTE ---
DATE: 01/04/2019 SUBJECT: Patient is waiting for rehab placement. No bed is available. Paperwork was done on Friday. Over the weekend patient developed some chest pain. 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 Patient also intermittent diarrhea. OBJECTIVE: Temperature is 98 degrees, tachycardic. Vitals are stable.HEENT: Within normal limits. Neck: Supple. No lymphadenopathy. Chest: Clear to auscultation. Heart: Sounds are regular. No murmur. Belly: Is soft, nontender. Good bowel sounds and no peripheral edema, cyanosis. No obvious neurological deficits. LABS: SMA 7. Sodium 138, potassium 4.0, BUN 28, creatinine 1.8. Cardiac enzymes were negative. EKG was done today, normal sinus, nothing acute. ASSESSMENT AND PLAN: 1. Atypical chest pain ruled out for myocardial infarction with the cardiac enzymes. Positive D- dimer. Patient is on Lovenox. Obviously the blood gas did not show any hypoxemia, pH is 7.40, pCO2 38, PO2 99. 2. Extended spectrum beta-lactamase Escherichia coli on Macrobid, diarrhea nonspecific, hypothyroidism on Synthroid. Will hold the discharge until she stabilizes and patient is not a candidate for going for assisted living. LEVEL OF DOCUMENTATION: 25 minutes. cc: Griffin De Los Santos MD
[2019-01-04] MEDS: MELATONIN PO SCH ×2 (21:52→21:53)
[2019-01-04] MEDS: SYSTANE EYE DROPS BOTH EYES SCH (21:53)
[2019-01-04] MEDS: PROTONIX PO SCH (21:57)
[2019-01-05] MEDS: SYNTHROID PO SCH (06:03)
[2019-01-05] MEDS: DUONEB (A & A) INH PRN (07:28)
[2019-01-05] MEDS: VITAMIN D PO SCH (08:30)
[2019-01-05] MEDS: FOLIC ACID PO SCH (08:31)
[2019-01-05] MEDS: TRINTELLIX PO SCH (08:31)
[2019-01-05] MEDS: MACROBID PO SCH (08:32)
[2019-01-05] MEDS: CULTURELLE PO SCH (08:32)
[2019-01-05] MEDS: LIPITOR PO SCH (08:32)
[2019-01-05] MEDS: COMBIGAN OPHTH SOLN BOTH EYES SCH (08:33)
[2019-01-05] MEDS: LOVENOX SUBQ SCH (08:33)
[2019-01-05] MEDS: ABILIFY PO SCH (09:19)
[2019-01-05 12:39] VITALS: BP 154/57
[2019-01-05] MEDS: LOMOTIL PO PRN (15:34)
== END 2019-01-05 16:37 | DRG 689 ==
LOC: SUPCPDRO → ED 12:09 → EDIPHOLD 22:21 → 3N 12-24 04:44
PROVIDERS: ADMIT Internal Medicine; ATTEND Internal Medicine
CPT/HCPCS: 51701; 71010; 71045; 76770; 80048; 80076; 81001; 82150; 82270; 82550; 82805; 83605; 83690; 83735; 83880; 84439; 84443; 84484; 85025; 85379; 87040; 87045; 87046; 87077; 87088; 87186; 87205; 87275; 87276; 87449; 87804; 89055; 93005; 93010; 94640; 94761; 96361; 96365; 96366; 97110; 97116; 97162; 97530; 99285; A9270; C9113; J0743; J1650; J1956; J2405; J3475; J3480; J7030; J7050; P9612; S0030; S0164